=== PATIENT | female | born 1965 | race Caucasian/White ===

== ENCOUNTER 2017-05-29 13:57 | Outpatient (CLI) | payer BC ==
[2015-05-21 12:56] VITALS: BP 163/86
== END 2017-05-29 14:00 ==
LOC: LAB 13:57
PROVIDERS: ATTEND Family Medicine
DX: E11.9 Type 2 diabetes mellitus without complications (principal)
CPT/HCPCS: 36415; 83036

== ENCOUNTER 2017-11-06 15:39 | Outpatient (CLI) | payer BC ==
[2015-05-21 12:56] VITALS: BP 163/86
== END 2017-11-06 15:40 ==
LOC: LAB 15:39
PROVIDERS: ATTEND Family Medicine
DX: E11.9 Type 2 diabetes mellitus without complications (principal); R20.2 Paresthesia of skin
CPT/HCPCS: 36415; 83036; 84443

== ENCOUNTER 2018-06-05 14:12 | Outpatient (CLI) | payer BC ==
[2015-05-21 12:56] VITALS: BP 163/86
== END 2018-06-05 14:14 ==
LOC: LAB 14:12
PROVIDERS: ATTEND Family Medicine
DX: E11.9 Type 2 diabetes mellitus without complications (principal)
CPT/HCPCS: 36415; 83036